=== PATIENT | female | born 2000 | race American Indian/Alaskan Native ===

== ENCOUNTER 2021-06-18 18:07 | Emergency (ER) | payer OTHER ==
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
[2021-06-19 06:01] VITALS: BP 130/70
== END 2021-06-18 21:23 | disposition home or self-care (01) ==
LOC: ED 18:07
DX: M62.830 Muscle spasm of back (principal); M62.838 Other muscle spasm
CPT/HCPCS: 99283